=== PATIENT | male | born 1955 | race Caucasian/White ===

== ENCOUNTER 2021-08-10 14:39 | Inpatient (IN) ==
--- NOTE | 2021-08-10 15:15 | XRay Report ---
XR chest 1V portable CLINICAL HISTORY: Atypical chest pain TECHNIQUE: Single frontal radiograph of the chest was obtained. Comparison: None available at the time of this dictation. FINDINGS: No lines and tubes are seen. The cardiomediastinal silhouette is normal. The lungs are clear. No evid ence of pleural effusion or pneumothorax. IMPRESSION: No acute chest disease. ACT 112: Negative or not required by law. Electronically signed by: Wilberto Villanueva M.D. 08/10/2021 3:13 PM
[2021-08-10] MEDS ORDERED: NITROGLYCERIN SL 0.4 MG/TAB TAB SL STA ×2 (15:20→18:11)
[2021-08-10 15:21] LABS: Basophils # (auto) 0.02 K/uL (0-0.2); Basophils % (auto) 0.3 %; Eosinophils # (auto) 0.12 K/uL (0-0.5); Eosinophils % (auto) 1.9 %; Hematocrit (blood only) 40.3 % (42-52); Hemoglobin 13.4 g/dL (14.0-18.0); Immature Granulocytes # (auto) 0.01 K/uL (0.00-0.02); Immature Granulocytes % (auto) 0.2 %; Lymphocytes # (auto) 1.69 K/uL (1.2-3.4); Mean Corpuscular Hemoglobin 25.8 pg (25-34); Mean Corpuscular Hgb Conc 33.3 g/dL (32-36); Mean Corpuscular Volume 77.6 fL (80-100); Mean Platelet Volume 11.1 fL (7.4-10.4); Monocytes # (auto) 0.48 K/uL (0.11-0.59); Monocytes % (auto) 7.7 %; Neutrophils # (auto) 3.93 K/uL (1.4-6.5); Neutrophils % (auto) 62.9 %; Platelet Count 197 K/uL (130-400); RDW Coefficient of Variation 14.3 % (11.5-14.5); RDW Standard Deviation 40.6 fL (36.4-46.3); Red Blood Count 5.19 M/uL (4.7-6.1); White Blood Count 6.25 K/uL (4.8-10.8)
[2021-08-10] MEDS ORDERED: MoRPHine SULFATE 4 MG/ML 1 ML CARP\\VIAL IV STA (15:22)
[2021-08-10 15:30] LABS: Prothrombin Time 9.8 Seconds (9.0-12.0)
[2021-08-10 15:49] LABS: Alanine Aminotransferase 15 U/L (7-52); Albumin Globulin Ratio 1.5 (0.9-2); Albumin Level 4.3 gm/dl (3.4-5.0); Alkaline Phosphatase 77 U/L (34-104); Anion Gap 8 (3-11); Aspartate Aminotransferase 15 U/L (13-39); BUN Creatinine Ratio 15.6 (10-20); Bilirubin,Total 0.5 mg/dl (0.2-1.0); Blood Urea Nitrogen 14 mg/dl (6-23); Calcium 8.8 mg/dl (8.5-10.1); Carbon Dioxide 25 mmol/L (21-32); Chloride 107 mmol/L (98-107); Creatinine Clr Calc Pharmacy 92.6 ml/min; Est GFR (African American) 102.1 ml/min; Est GFR (Non-African American) 88.1 ml/min; Globulin 2.9 gm/dl (2.5-4.0); Glucose 134 mg/dl (70-99(Fasting)); Lipase 31 U/L (11-82); Potassium 3.6 mmol/L (3.5-5.1); Sodium 140 mmol/L (136-145); Total Protein 7.2 gm/dl (6.0-8.3); Troponin I < 0.03 ng/ml (0-0.04)
--- NOTE | 2021-08-10 15:50 | Emergency Department Note ---
Impression & Plan Chest pain, Coronary artery disease, Hypertension ED Provider Note Provider: Zeferino Ibarra MD DATE OF SERVICE: 08/10/2021 CHIEF COMPLAINT: Chest tightness HISTORY OF PRESENT ILLNESS: Patient is a 66-year-old gentleman history of hypertension, hypothyroidism, and CAD with prior stenting last in 2018 presenting here today via ambulance from his house with chest tightness. Patient reports that he had been well until yesterday. States that he was on his treadmill which he normally uses every day during the cold weather. Has a history of cold weather angina several years ago and thus during winter exercises inside. States he got on his treadmill it is normal to slightly less than normal rate and quickly had to stop after only 3 minutes due to tightness across his chest and some numbness in the left arm. He reports this was similar to paint when he had his heart related pain interventions in the past. States he felt generally weak and just could not lift dumbbells either yesterday to try to maintain his strength. Patient states things moderated when he stopped some but then today at rest the pain/tightness returned. Denies any tearing pain. Denies any abdominal symptoms such as nausea or vomiting. Patient denies syncope. Patient took 3 doses nitroglycerin arrival which minimally helped his pain. States he was going with his to get in the car to come to the [facility]ital when after the third dose of nitroglycerin he felt a bit lightheaded and had to get down to the floor but states he did not fall. Patient is on aspirin was given 3 additional tablets for full dose aspirin today by EMS and additional nitroglycerin. This did help his pain some. Still reports about a 7 out of 10 chest tightness. Patient states he has followed with Dr. Castro of cardiology here. REVIEW OF SYSTEMS: A total of 10 review of systems was obtained and negative except as stated above in the HPI. PAST MEDICAL HISTORY: As noted above MEDICATIONS: Reviewed home medications SOCIAL HISTORY: , retired PHYSICAL EXAM: GENERAL: alert and oriented in no acute distress on stretcher Head: normocephalic and atraumatic EYES: No injection, discharge or icterus. NECK: Trachea midline. LUNGS: Airway patent. No retractions. Breath sounds clear with good air entry bilaterally. HEART: Regular rate and rhythm. No chest wall tenderness ABDOMEN: Soft and non-tender, without guarding or rebound. SKIN: Acyanotic, warm, dry, without rashes EXTREMITIES: Without swelling, tenderness or deformity NEUROLOGICAL: No focal deficits. No aphasia. No facial droop or slurred speech. Ambulatory. EK bpm normal sinus rhythm. No PVC or PAC. No acute ST segment elevation with a QTC of 466. CONTINUOUS CARDIAC MONITORING: was ordered and showed a heart rate of 70s-90s bpm in normal sinus rhythm Patient's laboratory studies and imaging reviewed. Differential includes Cardiac ischemia, aortic dissection, pulmonary embolism, pneumothorax, pneumonia, pericarditis, myocarditis, esophageal rupture, GERD, cholecystitis, pancreatitis, musculoskeletal, as well as other pathologies. IMPRESSION/MEDICAL DECISION MAKING: Patient with significant history of CAD on aspirin with worrisome symptoms from exertional chest pain today to pain at rest today with a tightness similar to prior cardiac issues. No STEMI on initial EKG. Nitro 4 times prior to arrival given additional here. Patient still somewhat hypertensive but denies a tearing quality to the pain in his chest. Chest x-ray without significant abnormality noted such as wide mediastinum, pneumothorax, or pulmonary complaint. Covid test was completed to exclude although this is lower on my differential --negative. Basic blood work was sent. Patient with a benign abdomen on exam. Patient without significant leukocytosis and very minimal anemia. Given small amount morphine to help with his pain as well. No significant electrolyte abnormalities or signs of renal dysfunction on the blood work. Initial troponin here without significant elevation. Given pain and concerning story will have hospitalist eval for observation. Morphine significantly improved patient's pain. DIAGNOSIS: Chest pain DISPOSITION: Hospitalist will evaluate Patient was agreeable with this plan. Past Med/Surg History Medical History (Updated 05/17/21 @ 10:10 by Scarlet Espinal PA-C) Coronary artery disease Hypertension Hypothyroidism KATE (obstructive sleep apnea) TIA (transient ischemic attack) Surgical History (Updated 04/20/21 @ 09:43 by Cruz Ann LPN) History of appendectomy History of cataract surgery History of coronary artery stent placement History of left knee surgery History of thyroid surgery Family History Father Alcohol abuse Cancer of abdominal wall Myocardial infarction Sister Alcohol abuse Denies family history of Ovarian cancer Prostate cancer Breast cancer Colorectal cancer Social History (Updated 04/20/21 @ 09:48 by Cruz Ann LPN) Smoking Status: Never smoker Second Hand Exposure: No; Hx Alcohol Use: Yes Alcohol type: beer, wine and hard liquor Alcohol type Com ment: 5-8 drinks per week Hx Substance Use: No Preferred Language: Kyrgyz Communication Ability: Effective Visual Impairment: Limited Hearing Ability: Normal Beliefs That Will Affect Care: None marital status: Current Living Situation: Spouse current occupational status: retired How many Children do You have: 1 Feels Safe at Home: Yes Childhood Exposure to Second-Hand Smoke: Yes (father smoked cigars and pipe ) caffeine: Yes Dental Care, Regularly: Yes Physical Activity Frequency: 5-6 Times per Week Seatbelt Use: always Sunscreen Use: Yes Allergies Allergies Allergy/AdvReac Type Severity Reaction Status Date / Time bee venom protein (honey bee) Allergy Unknown Verified 08/10/21 16:01 Home Meds Home Medications Medication Instructions Recorded Confirmed aspirin 81 mg tablet,delayed 81 mg PO QAM tab 04/20/21 08/10/21 release (Adult Low Dose Aspirin) levothyroxine 150 mcg tablet 150 mcg PO DAILYBB 08/10/21 08/10/21 (Synthroid) metoprolol succinate 25 mg 12.5 mg PO QAM 08/10/21 08/10/21 tablet,extended release 24 hr Previous Rx's Medication Instructions Recorded amlodipine 10 mg tablet 10 mg PO QPM #90 tab 04/20/21 atorvastatin 40 mg tablet 40 mg PO QPM #90 tab 04/20/21 tamsulosin 0.4 mg capsule (Flomax) 0.4 mg PO HS #90 cap 04/20/21 nitroglycerin 0.4 mg sublingual 0.4 mg SUBLINGUAL Q5M PRN #30 tab 05/13/21 tablet CPAP Supplies #1 ea 05/18/21 Results & Data (ED) Vital Signs Vital Signs - 24 hr 08/10/21 14:50 08/10/21 15:16 08/10/21 15:42 Temperature 36.7 C Temperature Source Oral Pulse Rate 84 Pulse Rhythm Regular Pulse Strength Normal Respiratory Rate 18 Respiratory Effort / Characteristics Non-Labored Spontaneous Respiratory Depth Normal Respiratory Pattern Regular Blood Pressure 162/88 H 152/84 H 139/82 Blood Pressure Mean 112 106 101 Blood Pressure Position Lying Pulse Oximetry 99 Oxygen Delivery Method Room Air Sepsis Recent Fever Within 48 Hours No Sepsis New/Unexplained Change in Mental Status N/A Sepsis Action Taken by Nursing No Action Required 08/10/21 15:59 Temperature Temperature Source Pulse Rate Pulse Rhythm Pulse Strength Respiratory Rate Respiratory Effort / Characteristics Respiratory Depth Respiratory Pattern Blood Pressure 153/85 H Blood Pressure Mean 107 Blood Pressure Position Pulse Oximetry Oxygen Delivery Method Sepsis Recent Fever Within 48 Hours Sepsis New/Unexplained Change in Mental Status Sepsis Action Taken by Nursing Laboratory Data Result diagrams: 08/10/21 14:58 08/10/21 14:58 Lab Results 08/10/21 08/10/21 08/10/21 Range/Units 14:58 14:58 14:58 WBC 6.25 (4.8-10.8) K/uL RBC 5.19 (4.7-6.1) M/uL Hgb 13.4 L (14.0-18.0) g/dL Hct 40.3 L (42-52) % MCV 77.6 L (80-100) fL MCH 25.8 (25-34) pg MCHC 33.3 (32-36) g/dL RDW Std Deviation 40.6 (36.4-46.3) fL RDW Coeff of Johnson 14.3 (11.5-14.5) % Plt Count 197 (130-400) K/uL MPV 11.1 H (7.4-10.4) fL Immature Gran % (Auto) 0.2 % Neut % (Auto) 62.9 % Lymph % (Auto) 27.0 % Mcnairy % (Auto) 7.7 % Eos % (Auto) 1.9 % Baso % (Auto) 0.3 % Neut # (Auto) 3.93 (1.4-6.5) K/uL Lymph # (Auto) 1.69 (1.2-3.4) K/uL [place]nairy # (Auto) 0.48 (0.11-0.59) K/uL Eos # (Auto) 0.12 (0-0.5) K/uL Baso # (Auto) 0.02 (0-0.2) K/uL Immature Gran # (Auto) 0.01 (0.00-0.02) K/uL PT 9.8 (9.0-12.0) Seconds INR 1.0 (0.9-1.1) Sodium 140 (136-145) mmol/L Potassium 3.6 (3.5-5.1) mmol/L Chloride 107 (98-107) mmol/L Carbon Dioxide 25 (21-32) mmol/L Anion Gap 8 (3-11) BUN 14 (6-23) mg/dl Creatinine 0.90 (0.6-1.4) mg/dl Est Cr Clr Drug Dosing 92.6 ml/min Est GFR ( Amer) 102.1 ml/min Est GFR (Non-Af Amer) 88.1 ml/min BUN/Creatinine Ratio 15.6 (10-20) Glucose 134 H (70-99(Fasting)) mg/dl Calcium 8.8 (8.5-10.1) mg/dl Total Bilirubin 0.5 (0.2-1.0) mg/dl AST 15 (13-39) U/L ALT 15 (7-52) U/L Alkaline Phosphatase 77 (34-104) U/L Troponin I < 0.03 (0-0.04) ng/ml Total Protein 7.2 (6.0-8.3) gm/dl Albumin 4.3 (3.4-5.0) gm/dl Globulin 2.9 (2.5-4.0) gm/dl Albumin/Globulin Ratio 1.5 (0.9-2) Lipase 31 (11-82) U/L SARS-CoV-2, RNA, NAAT (NEGATIVE) 08/10/21 Range/Units 15:22 WBC (4.8-10.8) K/uL RBC (4.7-6.1) M/uL Hgb (14.0-18.0) g/dL Hct (42-52) % MCV (80-100) fL MCH (25-34) pg MCHC (32-36) g/dL RDW Std Deviation (36.4-46.3) fL RDW Coeff of Johnson (11.5-14.5) % Plt Count (130-400) K/uL MPV (7.4-10.4) fL Immature Gran % (Auto) % Neut % (Auto) % Lymph % (Auto) % Mcnairy % (Auto) % Eos % (Auto) % Baso % (Auto) % Neut # (Auto) (1.4-6.5) K/uL Lymph # (Auto) (1.2-3.4) K/uL Mcnairy # (Auto) (0.11-0.59) K/uL Eos # (Auto) (0-0.5) K/uL Baso # (Auto) (0-0.2) K/uL Immature Gran # (Auto) (0.00-0.02) K/uL PT (9.0-12.0) Seconds INR (0.9-1.1) Sodium (136-145) mmol/L Potassium (3.5-5.1) mmol/L Chloride (98-107) mmol/L Carbon Dioxide (21-32) mmol/L Anion Gap (3-11) BUN (6-23) mg/dl Creatinine (0.6-1.4) mg/dl Est Cr Clr Drug Dosing ml/min Est GFR ( Amer) ml/min Est GFR (Non-Af Amer) ml/min BUN/Creatinine Ratio (10-20) Glucose (70-99(Fasting)) mg/dl Calcium (8.5-10.1) mg/dl Total Bilirubin (0.2-1.0) mg/dl AST (13-39) U/L ALT (7-52) U/L Alkaline Phosphatase (34-104) U/L Troponin I (0-0.04) ng/ml Total Protein (6.0-8.3) gm/dl Albumin (3.4-5.0) gm/dl Globulin (2.5-4.0) gm/dl Albumin/Globulin Ratio (0.9-2) Lipase (11-82) U/L SARS-CoV-2, RNA, NAAT NEGATIVE (NEGATIVE) Administered Medications Discontinued Medications Morphine Sulfate (Morphine Sulfate 4 Mg/Ml 1 Ml Carp\Vial) 4 mg IV NOW STA Stop: 08/10/21 15:23 Last Admin: 08/10/21 15:59 Dose: 4 mg Documented by: [id number] Nitroglycerin (Nitroglycerin Sl 0.4 Mg/Tab Tab) 0.4 mg SL NOW STA Stop: 08/10/21 15:21 Last Admin: 08/10/21 15:37 Dose: 0.4 mg Documented by: [id number] Imaging Data Radiologist's Impression: Chest X-Ray 08/10/21 15:02 XR chest 1V portable CLINICAL HISTORY: Atypical chest pain TECHNIQUE: Single frontal radiograph of the chest was obtained. Comparison: None available at the time of this dictation. FINDINGS: No lines and tubes are seen. The cardiomediastinal silhouette is normal. The lungs are clear. No evidence of pleural effusion or pneumothorax. IMPRESSION: No acute chest disease. ACT 112: Negative or not required by law. Electronically signed by: Wilberto Villanueva M.D. 08/10/2021 3:13 PM Discharge Plan Visit Data Chief Complaint: Chest Pain Stated Complaint: CHEST PAIN ED Provider: Zeferino Ibarra Discharge Problem: Chest pain, Coronary artery disease, Hypertension Patient Disposition: Being Evaluated by Hospitalist Forms Stand Alone Forms: [facility] Prescriptions Prescriptions: No Action aspirin [Adult Low Dose Aspirin] 81 mg tablet,delayed release (DR/EC) 81 mg PO QAM RF: 0 amlodipine 10 mg tablet 10 mg PO QPM Qty: 90 RF: 3 atorvastatin 40 mg tablet 40 mg PO QPM Qty: 90 RF: 3 tamsulosin [Flomax] 0.4 mg capsule 0.4 mg PO HS Qty: 90 RF: 3 nitroglycerin 0.4 mg tablet, sublingual 0.4 mg sublingual Q5M PRN (Reason: chest pain) Qty: 30 RF: 3 (DME) CPAP Supplies Misc See Rx Instructions .Route Qty: 1 RF: 0 levothyroxine [Synthroid] 150 mcg tablet 150 mcg PO DAILYBB RF: 0 metoprolol succinate 25 mg tablet extended release 24 hr 12.5 mg PO QAM RF: 0 Referrals Referrals: Hussein Feng DO [Primary Care Provider] -
--- NOTE | 2021-08-10 17:08 | History & Physical Report ---
Date of Service August 10, 2021 Assessment & Plan (1) Chest pain: Plan: -s/p CSI atherectomy and placement of 2 ERICKA to RCA in 2018 -Nitro paste ointment and morphine PRN for pain control. -Trend troponin Q6 x2 and one with AM labs. -Start heparin drip in anticipation of patient going to cardiac [facility] tomorrow. -Cardiology consult for tomorrow AM. -ASA 325 daily. -Continue amlodipine, metoprolol, statin, ASA. (2) Coronary artery disease: Plan: See above. Continuing home meds, increasing ASA to 325 mg PO daily. (3) Hypertension: Plan: -Continue amlodipine and metoprolol QD. (4) Hypothyroidism: Plan: -Continue Synthroid 150 mcg QD. (5) Hyperlipidemia: Plan: -Continue atorvastatin 40 mg QD. (6) KATE (obstructive sleep apnea): Plan: -CPAP at night. (7) Ingrown toenail of right foot with infection: Plan: -Patient had a partial nail avulsion of the right great toe due to ingrown toenail on 08/[address] Francheska Chase with podiatry. Today the toe is erythematous with minor purulent discharge. -Augmentin p.o. twice daily for 7 days. (8) DVT prophylaxis: Plan: -SCDs ordered -On heparin drip. History of Present Illness Chief Complaint: chest pain x1 day Primary Care Provider: Hussein Feng DO Patient is 66-year-old male with past medical history of hypertension, hyperlipidemia, coronary artery disease with RCA stent placement in 2018, hypothyroidism and sleep apnea who presents today with chest pain for the past day. Patient states he was doing his routine treadmill exercise yesterday and could not exercise to the capacity he typically does because of generalized fatigue. He typically exercises for 45 min and can get up to speed 7 and maintain it for 4-5 min, however yesterday could only walk at a slower pace. He denies experiencing chest pain at this time. Today, he began to experience a squeezing chest pain in the center of his chest at rest that radiates to the back, associated with numbness and tingling down his left arm. He states this is a similar presentation as in 2018 when he had chest pain that led to drug eluting stent placement. He took 3 nitroglycerin at home, and notes becoming lightheaded with this but did not have adequate pain alleviation which prompted his to call EMS. He endorses generalized fatigue, nausea, and some mild, generalized abdominal pain over the past 2 days, but denies vomiting, shortness of breath, PND, palpitations, weakness, edema, cough, congestion, headache, or other URI symptoms. Denies a history of GERD or recent injury to the chest wall. Pain is not positional or reproducible with palpation. Blood pressure is slightly elevated at 153/85, otherwise vitals are within normal limits. Initial troponin in ED was less than 0.03. EKG showed a sinus rhythm, when compared to an outpatient EKG from Apr 2021, there is evidence of LVH and questionable ST depression in the lateral leads. He was given aspirin on his way to the ED, as well as sublingual nitroglycerin and morphine in the ED. He says the morphine has brought his pain down to a 2-3 out of 10, however before it was 4-5 out of 10. Hospitalist team was called for evaluation and medical management. Allergies Allergy/AdvReac Type Severity Reaction Status Date / Time bee venom protein (honey bee) Allergy Unknown Verified 08/10/21 16:01 Home Medications Medication Instructions Recorded Confirmed Type amlodipine 10 mg tablet 10 mg PO QPM #90 tab 04/20/21 08/10/21 Rx aspirin 81 mg tablet,delayed 81 mg PO QAM tab 04/20/21 08/10/21 History release (Adult Low Dose Aspirin) atorvastatin 40 mg tablet 40 mg PO QPM #90 tab 04/20/21 08/10/21 Rx tamsulosin 0.4 mg capsule (Flomax) 0.4 mg PO HS #90 cap 04/20/21 08/10/21 Rx nitroglycerin 0.4 mg sublingual 0.4 mg SUBLINGUAL Q5M PRN #30 tab 05/13/21 08/10/21 Rx tablet CPAP Supplies #1 ea 05/18/21 08/10/21 Rx levothyroxine 150 mcg tablet 150 mcg PO DAILYBB 08/10/21 08/10/21 History (Synthroid) metoprolol succinate 25 mg 12.5 mg PO QAM 08/10/21 08/10/21 History tablet,extended release 24 hr Past Med/Surg History Medical History Coronary artery disease Hypertension Hypothyroidism KATE (obstructive sleep apnea) TIA (transient ischemic attack) Surgical History History of appendectomy History of cataract surgery History of coronary artery stent placement History of left knee surgery History of thyroid surgery Family History Father Alcohol abuse Cancer of abdominal wall Myocardial infarction Sister Alcohol abuse Denies family history of Ovarian cancer Prostate cancer Breast cancer Colorectal cancer Social History Smoking Status: Never smoker Second Hand Exposure: No; Hx Alcohol Use: Yes Alcohol type: beer, wine and hard liquor Alcohol type Comment: 5-8 drinks per week Hx Substance Use: No Preferred Language: Polish Communication Ability: Effective Visual Impairment: Limited Hearing Ability: Normal State [employer] Deputy Director Required: No Beliefs That Will Affect Care: None marital status: Current Living Situation: Spouse Current Living Situation Comment: with current occupational status: retired How many Children do You have: 1 Other Information That Helps Us Care for You: No Feels Safe at Home: No Is there a partner from a previous relationship who is making you feel unsafe now?: No Any Concerns about Your Family Situation: No Would You Like to Speak to Someone About Your Situation: No Safety Concerns: Feels Safe At This Time Childhood Exposure to Second-Hand Smoke: Yes (father smoked cigars and pipe ) caffeine: Yes Dental Care, Regularly: Yes Physical Activity Frequency: 5-6 Times per Week Seatbelt Use: always Sunscreen Use: Yes Assistive Devices: CPAP Review of Systems Review of Systems: Review of systems: Constitutional: Reports generalized fatigue x2 days; No fever, sweats or chills Eyes: No diplopia, no worsening or blurred vision ENT: normal hearing, no trouble swallowing Respiratory: No cough, sputum, dyspnea at rest or on exertion Cardiovascular: Reports substernal chest tightness with radiation to the back; denies palpitations Abdomen: Reports mild generalized abdominal pain and one episode of nausea; No vomiting, diarrhea or constipation Musculoskeletal: No joint pain, calf pain, swelling Neurologic: No weakness, numbness/tingling, or balance problems Psychiatric: No anxiety or depression Skin: No rash or itch Physical Exam Physical Exam: General: awake, alert, no apparent distress Head: Normocephalic, atraumatic ENT: PERRL, EOMI, no pharyngeal exudate, mucous membranes moist Chest: Clear to auscultation, on room air, no adventitious breath sounds Cardiac: Regular rate and rhythm, no murmur, no JVD, normal peripheral pulses, good capillary refill Abdominal: NABS x 4 quadrants, soft, nontender to palpation, no rebound, guarding or tenderness Extremities: Normal inspection, no peripheral edema or erythema, calfs nontender to palpation Psych: Normal mood and affect Neuro: AAO x 3, strength intact bilaterally and rated 5/5, no motor deficits, speech is clear, no peripheral sensory deficits Skin: Erythema with mild purulent discharge of right great toe Results & Data Results & Data ([facility]) Vital Signs (Past 12 Hours) Vital Signs Temp Pulse Resp BP Pulse Ox 08/10/21 15:59 153/85 H 08/10/21 15:42 139/82 08/10/21 15:16 152/84 H 08/10/21 14:50 36.7 C 84 18 162/88 H 99 Laboratory Results Abnormal lab results 08/10/21 08/10/21 Range/Units 14:58 14:58 Hgb 13.4 L (14.0-18.0) g/dL Hct 40.3 L (42-52) % MCV 77.6 L (80-100) fL MPV 11.1 H (7.4-10.4) fL Glucose 134 H (70-99(Fasting)) mg/dl Diagnostic Findings Chest X-Ray 08/10/21 15:02 XR chest 1V portable CLINICAL HISTORY: Atypical chest pain TECHNIQUE: Single frontal radiograph of the chest was obtained. Comparison: None available at the time of this dictation. FINDINGS: No lines and tubes are seen. The cardiomediastinal silhouette is normal. The lungs are clear. No evidence of pleural effusion or pneumothorax. IMPRESSION: No acute chest disease. Medications Administered Morphine Sulfate (Morphine Sulfate 2 Mg/Ml Carp) 2 mg IV Q4 PRN PRN Reason: Pain Scale: 2,3,4,5,6 Stop: 08/24/21 18:10 Last Admin: 08/10/21 18:32 Dose: 2 mg Documented by: [id number] Nitroglycerin (Nitroglycerin 2% Ointment 30gm Tube) 1 inch EXT Q6H CHRISTIAN Stop: 09/09/21 18:14 Last Admin: 08/10/21 18:31 Dose: 1 inch Documented by: [id number] ECG Additional Comments: Normal sinus rhythm Normal ECG No previous ECGs available Confirmed by Mushtaq Shoemaker ([id number]) on 08/10/2021 5:59:10 PM Code Status & VTE Plan Code Status Full Code Supervising Physician Co-Signing Physician Notes Patient was seen and examined independently I discussed the case with Tangela GRIFFIN I reviewed pertinent past medical social family history and also the plan of care and agree with the plan of care. Patient presents with reproducible exertional chest discomfort reminiscent of his previous angina. Patient had 2 drug-eluting stents to his right coronary artery in 2018. She has some associated shortness of breath but no radiation of discomfort no nausea. Initial EKG may have had some mild lateral changes however his initial troponin and repeat EKG are unremarkable. For stent 2018 he was on aspirin and Brilinta subsequently is reduced down to aspirin itself plus atorvastatin plus Toprol-XL these are all continued Because of a stuttering course in the emergency department therapeutic heparin drip was started nitroglycerin paste was placed morphine will be used sparingly Examination finds heart sounds regular no overt murmurs lungs were clear no overt JVD extremities are without edema he does have possibly some mild paronychia to his right great toe he is recently has an ingrown toenail removed placed on oral antibiotics for this at this time Any exceptions will be noted below PG Care Time/CCT Total # of Minutes Spent Total Time Spent with Patient: Total time spent is greater than 50% in coordination of care (as documented) at patient's floor/unit and/or counseling patient: Coding Level of Care Code 72687 Initial Inpt Care Lvl 3 Diagnoses Coronary artery disease I25.110 Associated angina: with unstable angina Coronary Disease-Associated Artery/Lesion type: ho-chunk artery [place] vs. transplanted heart: ho-chunk heart Hypertension I10 Hypertension type: primary hypertension Hypothyroidism E89.0 Hypothyroidism type: postoperative Hyperlipidemia E78.5 Hyperlipidemia type: unspecified KATE (obstructive sleep apnea) G47.33 DVT prophylaxis Z29.9 Chest pain R07.9 Ischemic chest pain type: unstable angina pectoris Ingrown toenail of right foot with infection L60.0 (1) Coronary artery disease Associated angina: with unstable angina Coronary Disease-Associated Artery/Lesion type: [place] artery [place] vs. transplanted heart: [place] heart Qualified Code(s): I25.110 - Atherosclerotic heart disease of ho-chunk coronary artery with unstable angina pectoris (2) Hyperlipidemia Hyperlipidemia type: unspecified Qualified Code(s): E78.5 - Hyperlipidemia, unspecified (3) Hypothyroidism Hypothyroidism type: postoperative Qualified Code(s): E89.0 - Postprocedural hypothyroidism (4) Chest pain Ischemic chest pain type: unstable angina pectoris (5) Hypertension Hypertension type: primary hypertension Qualified Code(s): I10 - Essential (primary) hypertension
--- NOTE | 2021-08-10 17:59 | Electrocardiogram Report ---
Test Reason : Blood Pressure : / mmHG Vent. Rate : 075 BPM Atrial Rate : 075 BPM P-R Int : 168 ms QRS Dur : 090 ms QT Int : 418 ms P-R-T Axes : 061 -21 031 degrees QTc Int : 466 ms Normal sinus rhythm Normal ECG No previous ECGs available Confirmed by Mushtaq Shoemaker ([id number]) on 08/10/2021 5:59:10 PM Referred By: ED Confirmed By:Lito Shoemaker
[2021-08-10] MEDS ORDERED: Heparin IV Adult Wt-Based Low-Dose WITH Bolus Protocol IV STA (18:01)
[2021-08-10] MEDS ORDERED: NITROGLYCERIN 2% OINTMENT 30GM TUBE EXT SCH (18:15)
[2021-08-10] MEDS: NITROGLYCERIN 2% OINTMENT 30GM TUBE EXT SCH (18:31)
[2021-08-10] MEDS: MoRPHine SULFATE 2 MG/ML CARP IV PRN ×2 (18:32→22:36)
[2021-08-10] MEDS ORDERED: HEPARIN SODIUM/DEXTROSE 25,000 UNITS/500 ML BAG IV SCH (20:00)
[2021-08-10] MEDS ORDERED: HEPARIN SOD (PORCINE) 1000 UNIT/ML IV ONE (20:00)
[2021-08-10] MEDS ORDERED: POLYETHYLENE (MIRALAX) 17 GM PACK PO PRN (21:07)
[2021-08-10] MEDS ORDERED: ONDANSETRON INJ 2 MG/ML 2 ML VIAL IV PRN (21:07)
[2021-08-10] MEDS: AMOXICILLIN/CLAVULANATE 500 MG TAB PO SCH (21:09)
[2021-08-10 23:49] LABS: Partial Thromboplastin Time 25.2 Seconds (21.0-31.0)
[2021-08-11] MEDS: amLODIPine BESYLATE 5 MG TAB PO SCH ×2 (00:12→20:36)
[2021-08-11] MEDS: TAMSULOSIN HCL 0.4 MG CAP PO SCH ×2 (00:14→20:36)
[2021-08-11] MEDS: ATORVASTATIN 40 MG TAB PO SCH ×2 (00:14→20:36)
[2021-08-11] MEDS: NITROGLYCERIN 2% OINTMENT 30GM TUBE EXT SCH ×3 (01:40→12:20)
[2021-08-11] MEDS: MoRPHine SULFATE 2 MG/ML CARP IV PRN ×3 (02:59→11:15)
[2021-08-11 03:15] LABS: Partial Thromboplastin Ratio 1.7; Partial Thromboplastin Time 43.9 Seconds (21.0-31.0)
[2021-08-11] MEDS: LEVOTHYROXINE SODIUM 150 MCG TABLET PO SCH (05:39)
[2021-08-11] MEDS: METOPROLOL SUCC 25MG EXT REL TAB PO SCH (07:47)
[2021-08-11] MEDS: AMOXICILLIN/CLAVULANATE 500 MG TAB PO SCH ×2 (07:47→20:36)
[2021-08-11] MEDS ORDERED: LORazepam 0.5 MG/1 ML VIAL IV PRN (07:57)
[2021-08-11] MEDS ORDERED: ASPIRIN 325 MG ECTAB PO SCH ×2 (09:00)
--- NOTE | 2021-08-11 09:54 | Cardiology Consultation ---
Date of Consultation August 11, 2021 Assessment & Plan (1) Coronary artery disease: Patient here with recurrent chest pain reminiscent of prior symptoms he had in the setting of severe CAD. Suspicion for ACS remains elevated despite negative troponin. With persistent symptoms recommend proceeding with cardiac catheterization. We discussed procedure including risk, benefits and he would like to proceed. Plan to perform via right radial artery later this morning. In the interim please keep n.p.o.. Repeat echocardiogram. Continue heparin infusion, home beta-david, aspirin. Further recommendations pending findings of coronary angiography. History of Present Illness Attending Physician: Pedro Luis Finney MD History of Present Illness Mr. Corbin is a very pleasant 66-year-old male with a past medical history significant for coronary artery disease post complex PCI to RCA with atherectomy and 2 ERICKA in 2018 readmitted with recurrent chest pain. Other medical issues include TIA in 2014, hypertension, hyperlipidemia, BPH, and hypothyroidism. Patient active at baseline, exercising regularly, walking on a treadmill, resistance training. 2 days ago attempted to do his regular walking on the treadmill and was stopped by increased fatigue, feeling unwell and questionable chest tightness. Yesterday after lunch developed recurrent substernal chest pain with radiation to his left arm and some associated nausea. Pain reminiscent of what he had prior to prior stents. Chest pain eventually spread to his left chest. Persisted despite 3 sublingual nitroglycerin at home, 8 out of 10 at its worst Presented to ED with ongoing chest pain. Troponin negative x3. Has had stuttering chest pain overnight requiring intermittent morphine, Ativan. Serial ECGs largely unremarkable. Subtle inferior ST changes on 3 AM ECG. Prior cardiac history: Seen by [facility] cardiology as a new consult 04/2021. Previously followed with a estimator jewelry, Dr. Nikko Calderon, at [facility]. According to records, he presented on 09/11/17 with chest pain. ECG showed normal sinus rhythm with nonspecific ST-T wave changes. Troponin was negative x3. He underwent a stress echo and developed chest discomfort during the study. The echo was unremarkable, but he did have ST depression on ECG. Cardiac catheterization on 09/12/17 revealed 50% proximal and 99% midvessel RCA stenosis. LAD had 30-50% midvessel stenosis. Circumflex was patent. The subtotal RCA stenosis was unable to be crossed at that time. He was taken back to the lab on 09/14/17 and had successful intervention to the RCA with the use of CSI atherectomy and placement of 3.0 x 33 mm Xience ERICKA to the prox and mid segments and 3.0 x 23 mm Xience ERICKA to the the more distal aspect of the mid segment of the RCA. He developed chest pain in May 2018 and underwent repeat cath on 06/01/18, which demonstrated widely patent RCA stents and patent LAD and circumflex. Family history: Father had a NC in his mid 30s. Social history: He is . He has 1 son and 1 grandson. He has another grandchild on the way. He recently moved to the area from [place], [place]. 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 No smoking. Occasional alcohol use. Allergies Allergy/AdvReac Type Severity Reaction Status Date / Time bee venom protein (honey bee) Allergy Unknown Verified 08/10/21 16:01 Home Medications Medication Instructions Recorded Confirmed Type amlodipine 10 mg tablet 10 mg PO QPM #90 tab 04/20/21 08/10/21 Rx aspirin 81 mg tablet,delayed 81 mg PO QAM tab 04/20/21 08/10/21 History release (Adult Low Dose Aspirin) atorvastatin 40 mg tablet 40 mg PO QPM #90 tab 04/20/21 08/10/21 Rx tamsulosin 0.4 mg capsule (Flomax) 0.4 mg PO HS #90 cap 04/20/21 08/10/21 Rx nitroglycerin 0.4 mg sublingual 0.4 mg SUBLINGUAL Q5M PRN #30 tab 05/13/21 08/10/21 Rx tablet CPAP Supplies #1 ea 05/18/21 08/10/21 Rx levothyroxine 150 mcg tablet 150 mcg PO DAILYBB 08/10/21 08/10/21 History (Synthroid) metoprolol succinate 25 mg 12.5 mg PO QAM 08/10/21 08/10/21 History tablet,extended release 24 hr Patient History Medical History Coronary artery disease Hypertension Hypothyroidism KATE (obstructive sleep apnea) TIA (transient ischemic attack) Surgical History History of appendectomy History of cataract surgery History of coronary artery stent placement History of left knee surgery History of thyroid surgery Family History Father Alcohol abuse Cancer of abdominal wall Myocardial infarction Sister Alcohol abuse Denies family history of Ovarian cancer Prostate cancer Breast cancer Colorectal cancer Social History Smoking Status: Never smoker Second Hand Exposure: No; Hx Alcohol Use: Yes Alcohol type: beer, wine and hard liquor Alcohol type Comment: 5-8 drinks per week Hx Substance Use: No Preferred Language: Amharic Communication Ability: Effective Visual Impairment: Limited Hearing Ability: Normal Scaffold Setter Required: No Beliefs That Will Affect Care: None marital status: Current Living Situation: Spouse Current Living Situation Comment: with current occupational status: retired How many Children do You have: 1 Other Information That Helps Us Care for You: No Feels Safe at Home: No Is there a partner from a previous relationship who is making you feel unsafe now?: No Any Concerns about Your Family Situation: No Would You Like to Speak to Someone About Your Situation: No Safety Concerns: Feels Safe At This Time Childhood Exposure to Second-Hand Smoke: Yes (father smoked cigars and pipe ) caffeine: Yes Dental Care, Regularly: Yes Physical Activity Frequency: 5-6 Times per Week Seatbelt Use: always Sunscreen Use: Yes Assistive Devices: CPAP Review of Systems Review of Systems: All systems reviewed & are unremarkable except as noted in HPI & below Physical Exam Physical Exam: General: Comfortable HEENT: Sclerae anicteric, Mask in place Lungs: Clear to auscultation bilaterally, no crackles or wheezes Cardiac: Regular rate and rhythm, no murmurs. Vascular: 2+ radial, DP pulses. No bruits Abdomen: Soft, nontender Extremities: Well perfused, no peripheral edema Neuro: Nonfocal Psych: Alert orient x3, normal affect and mood Results & Data ([facility]) Vital Signs (Past 12 Hours) Vital Signs Temp Pulse Pulse Resp BP BP Pulse Ox 08/11/21 08:50 54 L 08/11/21 07:57 97.7 F 85 18 150/86 H 98 08/11/21 05:38 113/63 08/11/21 02:53 97.7 F 77 18 150/80 H 99 08/11/21 01:38 132/79 08/11/21 00:05 97.7 F 58 L 18 146/78 H 96 08/10/21 23:44 65 08/10/21 22:26 65 16 152/89 H 98 PG Care Time/CCT Total # of Minutes Spent Total Time Spent with Patient: Total time spent is greater than 50% in coordination of care (as documented) at patient's floor/unit and/or counseling patient: Coding Level of Care Code 74044 Initial Inpt Care Lvl 3 Diagnoses Coronary artery disease I25.110 Associated angina: with unstable angina Coronary Disease-Associated Artery/Lesion type: [place] artery [place] vs. transplanted heart: [place] heart (1) Coronary artery disease Associated angina: with unstable angina Coronary Disease-Associated Artery/Lesion type: [place] artery [place] vs. transplanted heart: [place] heart Qualified Code(s): I25.110 - Atherosclerotic heart disease of [place] coronary artery with unstable angina pectoris
[2021-08-11 10:16] LABS: Partial Thromboplastin Ratio 1.7; Partial Thromboplastin Time 43.6 Seconds (21.0-31.0)
[2021-08-11] MEDS ORDERED: niCARdipine HCL INJ 2.5 MG/ML 10 ML AMP ONE (12:56)
[2021-08-11] MEDS ORDERED: HEPARIN (PORCINE) 1000 UNIT/ML 10 ML (CATH LAB USE ONLY) ONE (12:56)
[2021-08-11] MEDS ORDERED: MIDAZOLAM HCL 1 MG/ML 2ML VIAL ONE (12:57)
[2021-08-11] MEDS ORDERED: fentaNYL citrate 100 MCG/2 ML VIAL ONE (12:57)
[2021-08-11] MEDS ORDERED: NITROGLYCERIN/D5W 100MCG/ML 20ML SYR ONE (12:57)
--- NOTE | 2021-08-11 13:12 | Pre Anesthesia Assessment ---
Date of Service August 11, 2021 Pre Sedation Assessment Vital Signs Temp Pulse Pulse Resp BP BP BP 08/11/21 12:55 73 08/11/21 12:17 65 18 103/55 L 08/11/21 11:18 97.3 F L 71 18 144/76 H 08/11/21 08:50 54 L 08/11/21 07:57 97.7 F 85 18 150/86 H 08/11/21 05:38 113/63 08/11/21 02:53 97.7 F 77 18 150/80 H 08/11/21 01:38 132/79 08/11/21 00:05 97.7 F 58 L 18 146/78 H 08/10/21 23:44 65 08/10/21 22:26 65 16 152/89 H 08/10/21 21:05 65 16 141/81 H 08/10/21 20:51 80 16 141/81 H 08/10/21 18:57 70 16 142/87 H 08/10/21 17:58 70 16 148/94 H 08/10/21 15:59 153/85 H 08/10/21 15:42 139/82 08/10/21 15:16 152/84 H 08/10/21 14:50 98.1 F 84 18 162/88 H Pulse Ox 08/11/21 12:55 98 08/11/21 12:17 96 08/11/21 11:18 97 08/11/21 08:50 08/11/21 07:57 98 08/11/21 05:38 08/11/21 02:53 99 08/11/21 01:38 08/11/21 00:05 96 08/10/21 23:44 08/10/21 22:26 98 08/10/21 21:05 98 08/10/21 20:51 98 08/10/21 18:57 98 08/10/21 17:58 99 08/10/21 15:59 08/10/21 15:42 08/10/21 15:16 08/10/21 14:50 99 Cardiovascular RRR, no murmur, no edema Respiratory normal respiratory effort, lungs clear to auscultation Pre-Sedation Airway Assessment Smoking Status: Never smoker Hx Sleep Apnea: Yes Hx Difficult Intubation: No Short, Thick Neck: Yes Thyromental Distance: > or= 3.5 Finger Breadths Oral Cavity: + WNL Mallampati Class: III ASA: ASA3 NPO Status Date of Last Intake of Fluids: 08/10/21 Date of Last Intake of Solid Food: 08/10/21 Procedure Planning Contraindications for Sedation: none Current Medications Reviewed: Yes Notes The planned sedation has been discussed with the patient. Informed Consent was obtained. I have identified the patient, determined the appropriateness of sedation and have assessed the patient immediately prior to the procedure. All medicine(s) and interventions are by my order.
--- NOTE | 2021-08-11 13:33 | XCELERA ---
[id number]
--- NOTE | 2021-08-11 14:05 | Post Anesthesia Assessment ---
Date of Service August 11, 2021 Post Sedation Assessment Vital Signs Temp Pulse Pulse Resp BP BP BP 08/11/21 12:55 73 08/11/21 12:17 65 18 103/55 L 08/11/21 11:18 97.3 F L 71 18 144/76 H 08/11/21 08:50 54 L 08/11/21 07:57 97.7 F 85 18 150/86 H 08/11/21 05:38 113/63 08/11/21 02:53 97.7 F 77 18 150/80 H 08/11/21 01:38 132/79 08/11/21 00:05 97.7 F 58 L 18 146/78 H 08/10/21 23:44 65 08/10/21 22:26 65 16 152/89 H 08/10/21 21:05 65 16 141/81 H 08/10/21 20:51 80 16 141/81 H 08/10/21 18:57 70 16 142/87 H 08/10/21 17:58 70 16 148/94 H 08/10/21 15:59 153/85 H 08/10/21 15:42 139/82 08/10/21 15:16 152/84 H 08/10/21 14:50 98.1 F 84 18 162/88 H Pulse Ox 08/11/21 12:55 98 08/11/21 12:17 96 08/11/21 11:18 97 08/11/21 08:50 08/11/21 07:57 98 08/11/21 05:38 08/11/21 02:53 99 08/11/21 01:38 08/11/21 00:05 96 08/10/21 23:44 08/10/21 22:26 98 08/10/21 21:05 98 08/10/21 20:51 98 08/10/21 18:57 98 08/10/21 17:58 99 08/10/21 15:59 08/10/21 15:42 08/10/21 15:16 08/10/21 14:50 99 Recovery Score Activity: Moves 4 extremities Respiration: Deep Breath/Cough Circulation: +/-20% PreAnes Value Consciousness: Fully Awake Oxygen Saturation: O2 needed for >90% Discharge Sedation Level of Care: Fast Track Phase II Post Sedation Plan On clinical assessment, the patient appears to have tolerated the sedation without complications. Patient is recovering as anticipated. Patient will continue to be monitored by nursing and may be discharged when sedation discharge criteria are met per below protocol. Upon Completions of procedure up to 15 minutes continue every 5 minute vital signs and the P.A.R. score; then discharge to a Phase I or Fast Track to Phase II per the following guidelines: * Discharge Patient to appropriate Phase II area if PAR is 8 or greater or return to pre- procedure baseline. The post - procedure orders will be as directed. * If PAR score is less than 8 or not return to pre-procedure baseline then patient will follow Phase I monitoring till PAR is reached for Phase II. The Phase I may be done in procedure room or may call to secure a Phase I area. * If naloxone or flumazenil are used for reversal, hold in Phase I for continued monitoring from when last reversal dose was given for a minimum of 60 minutes or longer pending the nurse and/or physician discretion of patient condition before discharge to Phase II. Please call the Sedation Physician to re-evaluate and complete post-note for discharge to Phase II area. Do NOT discharge from procedure sedation or Phase 1 until post- sedation evaluation note is complete by procedure /sedation MD Sedation Discharge Instructions to be given to the patient at discharge to home.
[2021-08-11] MEDS ORDERED: SODIUM CHLORIDE 0.9% 1000ML 1,000 ML IV SCH (14:15)
--- NOTE | 2021-08-11 14:35 | Cardiac Catheterization ---
[facility] Data: Show Worker Cardiac Status Clinical evaluation leading to the procedure CAD Presenation: Unstable angina Anginal Classification: CCS IV Heart Failure: No Cardiogenic Shock within 24 Hours: No Cardiac Arrest within 24 Hours: No Imaging Studies Past 6 Months: Yes Stress Studies Past 6 Months: No Diagnostic Physicians Name: Mushtaq Roque MD Status: Elective Closure Device Percutaneous Entry Location: Radial Closure Device: Radial Band Recommendations: Medical Therapy and/or Counseling Intraprocedure Events Significant Disection: No Perforation: No Cardiac Cath Procedure Full Procedure Date August 11, 2021 Pre-Procedure Diagnosis Pre-Procedure Diagnosis: Acute Coronary Syndrome AUC Score AUC Score: 7 Post-Procedure Diagnosis Post-Procedure Diagnosis: Moderate CAD and Normal Intracardiac Pressures Procedure(s) Performed Procedure(s) Performed: Coronary Angiography and Left Heart Cath Crew Caller Mushtaq Roque MD Family Law Attorney(s) Olivieribler Estimated Blood Loss Estimated Blood Loss: 15 Medication(s) Medication(s): Fentanyl, Heparin, Lidocaine 1%, Nicardipine, Nitroglycerin and Versed Summary of Findings Indication: Suspected ACS. History of coronary artery disease with prior PCI to RCA with atherectomy and 2 ERICKA Access: 6 Fr right radial artery attemptedunable to pass wire across brachial artery disease. Procedure completed through 6 Fr left radial artery access Catheters: [place], JL 4 Findings: LM -medium caliber, no significant disease LAD -medium caliber, 20 to 30% mid segment disease, 60-70% stenosis with some myocardial bridging in very distal LAD as wraps around apex. Circumflex -medium caliber, no significant disease. Gives off large OM 2 without disease. RCA -dominant, medium caliber, widely patent proximal to mid stent, latemid stent with 30 to 40% in-stent restenosis. PDA with 40 to 50% mid stenosis LVEDP - 4 Arterial Closure: TR band Summary: 1. Moderate nonobstructive coronary artery disease -Patent proximal to mid RCA stent, late-mid RCA stent with 30 to 40% restenosis. 45% mid PDA. 60 to 70% stenosis with myocardial bridging of very distal LAD as wraps around apex 2. Low intracardiac filling pressure Recommendations: Patient with no high risk CAD. Borderline very distal LAD disease not the cause of patient's recent rest pain. Continue medical managementwe will try Imdur 30 mg daily for recent exertional symptoms. Continue antiplatelet therapy with aspirin alone. Continue statin and prior antihypertensives. Further evaluation for noncardiac causes of recent chest pain per primary team. Hemodynamics Rest Ao:: 85/56/70 Final Ao: 90/57/73 LV: 97/4 Recommendations Recommendations: Medical Therapy and/or Counseling Specimens Specimens: None Radiation Exposure (mGy) 653 Contrast (mls) 50 Fluids (cc crystalloids) Fluids (cc crystalloids): 85 Drains Drains: None Anesthesia Moderate 6236-1504 Procedural Complication(s) None Disposition Show Worker Holding/Recovery I attest to the content of the Intraoperative Record and any orders documented therein. Any exceptions are noted below. [facility] Card Cath Procedure Codes Cardiac Catheterization Procedure 1: Cardiovascular Cath Procedures: 81337 Coronaries and LHC (+/-LV) Moderate Sedation Procedure 1: Sedation/Anesthesia: 04533 Mod Sedation by the same physician;Init15 Min Child Age 5 & Up PG Care Time/CCT Total # of Minutes Spent Total Time Spent with Patient: Total time spent is greater than 50% in coordination of care (as documented) at patient's floor/unit and/or counseling patient:
--- NOTE | 2021-08-11 14:54 | Electrocardiogram Report ---
Test Reason : Blood Pressure : / mmHG Vent. Rate : 066 BPM Atrial Rate : 066 BPM P-R Int : 172 ms QRS Dur : 090 ms QT Int : 454 ms P-R-T Axes : 046 -19 015 degrees QTc Int : 475 ms Poor data quality, interpretation may be adversely affected Normal sinus rhythm Minimal voltage criteria for LVH, may be normal variant Borderline ECG When compared with ECG of 10-AUG-2021 14:47, No significant change was found Confirmed by Mushtaq Shoemaker ([id number]) on 08/11/2021 2:54:11 PM Referred By: REFERRED SELF Confirmed By:Lito Shoemaker
--- NOTE | 2021-08-11 15:38 | Electrocardiogram Report ---
Test Reason : Blood Pressure : / mmHG Vent. Rate : 058 BPM Atrial Rate : 058 BPM P-R Int : 176 ms QRS Dur : 090 ms QT Int : 468 ms P-R-T Axes : 049 -08 014 degrees QTc Int : 459 ms Sinus bradycardia Otherwise normal ECG When compared with ECG of 10-AUG-2021 19:46, (unconfirmed) No significant change was found Confirmed by Mushtaq Shoemaker ([id number]) on 08/11/2021 3:38:18 PM Referred By: REFERRED SELF Confirmed By:Lito Shoemaker
--- NOTE | 2021-08-11 15:42 | Electrocardiogram Report ---
Test Reason : Blood Pressure : / mmHG Vent. Rate : 075 BPM Atrial Rate : 075 BPM P-R Int : 174 ms QRS Dur : 088 ms QT Int : 400 ms P-R-T Axes : 064 -11 007 degrees QTc Int : 447 ms Normal sinus rhythm When compared with ECG of 10-AUG-2021 21:14, (unconfirmed) No significant change was found Confirmed by Mushtaq Shoemaker ([id number]) on 08/11/2021 3:42:28 PM Referred By: REFERRED SELF Confirmed By:Lito Shoemaker
--- NOTE | 2021-08-11 15:43 | Electrocardiogram Report ---
Test Reason : Blood Pressure : / mmHG Vent. Rate : 074 BPM Atrial Rate : 074 BPM P-R Int : 166 ms QRS Dur : 090 ms QT Int : 426 ms P-R-T Axes : 072 -11 053 degrees QTc Int : 472 ms Normal sinus rhythm Normal ECG When compared with ECG of 11-AUG-2021 06:11, (unconfirmed) Nonspecific T wave abnormality no longer evident in Inferior leads Nonspecific T wave abnormality, improved in Lateral leads Confirmed by Mushtaq Shoemaker ([id number]) on 08/11/2021 3:43:12 PM Referred By: REFERRED SELF Confirmed By:Lito Shoemaker
--- NOTE | 2021-08-11 15:43 | Electrocardiogram Report ---
Test Reason : Blood Pressure : / mmHG Vent. Rate : 061 BPM Atrial Rate : 061 BPM P-R Int : 178 ms QRS Dur : 090 ms QT Int : 444 ms P-R-T Axes : 072 -15 -09 degrees QTc Int : 446 ms Normal sinus rhythm Normal ECG When compared with ECG of 11-AUG-2021 03:02, (unconfirmed) No significant change was found Confirmed by Mushtaq Shoemaker ([id number]) on 08/11/2021 3:43:20 PM Referred By: REFERRED SELF Confirmed By:Lito Shoemaker
--- NOTE | 2021-08-11 19:06 | Hospitalist Progress Note ---
Date of Service August 11, 2021 Assessment & Plan (1) Chest pain: Plan: -s/p CSI atherectomy and placement of 2 ERICKA to RCA in 2018 -negative trend of troponin -left heart cath Moderate nonobstructive coronary artery disease -Patent proximal to mid RCA stent, late-mid RCA stent with 30 to 40% restenosis. 45% mid PDA. 60 to 70% stenosis with myocardial bridging of very distal LAD as wraps around apex Low intracardiac filling pressure Recommendations by cardiology : Patient with no high risk CAD. Borderline very distal LAD disease not the cause of patient's recent rest pain. Continue medical managementwe will try Imdur 30 mg daily for recent exertional symptoms. Continue antiplatelet therapy with aspirin alone. Continue statin and prior antihypertensives. -Continue amlodipine, metoprolol, statin, ASA. (2) Hypertension: Plan: -Continue amlodipine and metoprolol QD. (3) Hypothyroidism: Plan: -Continue Synthroid 150 mcg QD. (4) Hyperlipidemia: Plan: -Continue atorvastatin 40 mg QD. (5) KATE (obstructive sleep apnea): Plan: -CPAP at night. (6) Ingrown toenail of right foot with infection: Plan: -Patient had a partial nail avulsion of the right great toe due to ingrown toenail on 08/[address] Francheska Chase with podiatry. Today the toe is erythematous with minor purulent discharge. -Augmentin p.o. twice daily for 7 days. (7) DVT prophylaxis: Plan: -SCDs ordered Admission and Anticipated Discharge Date Admission Date: August 10, 2021 Subjective this pt was seen post catheterization and was found to have non occlusive disease, but some distal disease and will have start of isosorbide to see if it provides symptom relief. Review of Systems Review of Systems: Mild distress and fatigue no headache, no visual changes no speech or swallowing issues no chest pain, pressure or palpitations no shortness of breath, cough or wheezes no abdominal pain, nausea or vomiting, diarrhea or constipation no dysuria, hematuria or frequency no focal joint pain or swelling no back pain, CVA tenderness or radicular pain no bruising, bleeding or rashes no focal signs of weakness or numbness or altered sensation no complaints of anxiety or depression.. Physical Exam Physical Exam: The patient appeared well nourished and normally developed. Vital signs as documented. Head exam is normocephalic atraumatic Neck is without JVD, thyromegaly, or carotid bruits. Lungs are clear to auscultation, no focal loss of breath sounds Cardiac exam, Rhythm is regular.. No murmurs, rubs or gallops. Abdominal exam reveals normal bowel sounds, soft non tender, no masses Extremities are nonedematous and both pedal pulses are present Neurologic exam is alert and oriented, no focal loss of strength or sensation Skin is without bruises or rashes Psychologically is without concerns for anxiety or depression.. Results & Data Results & Data ([facility]) Vital Signs (Past 12 Hours) Vital Signs Temp Pulse Pulse Resp BP BP Pulse Ox 08/11/21 16:30 62 18 112/71 96 08/11/21 16:15 72 18 151/81 H 96 08/11/21 16:00 72 18 152/75 H 96 08/11/21 15:45 62 18 157/74 H 97 08/11/21 15:30 67 18 133/75 97 08/11/21 15:15 66 18 148/88 H 97 08/11/21 15:00 67 18 190/96 H 93 08/11/21 14:45 74 18 162/91 H 91 08/11/21 14:30 73 18 142/78 H 91 08/11/21 14:15 60 18 145/69 H 91 08/11/21 14:00 60 18 145/69 H 91 08/11/21 12:55 73 98 08/11/21 12:17 65 18 103/55 L 96 08/11/21 11:18 97.3 F L 71 18 144/76 H 97 08/11/21 08:50 54 L 08/11/21 07:57 97.7 F 85 18 150/86 H 98 PG Care Time/CCT Total # of Minutes Spent Total Time Spent with Patient: Total time spent is greater than 50% in coordination of care (as documented) at patient's floor/unit and/or counseling patient: Coding Level of Care Code 51895 Subseq Hosp Care Lvl 2 Diagnoses Chest pain R07.9 Ischemic chest pain type: unstable angina pectoris Hypertension I10 Hypertension type: primary hypertension Hypothyroidism E89.0 Hypothyroidism type: postoperative Hyperlipidemia E78.5 Hyperlipidemia type: unspecified KATE (obstructive sleep apnea) G47.33 Ingrown toenail of right foot with infection L60.0 DVT prophylaxis Z29.9 (1) Chest pain Ischemic chest pain type: unstable angina pectoris (2) Hypertension Hypertension type: primary hypertension Qualified Code(s): I10 - Essential (primary) hypertension (3) Hypothyroidism Hypothyroidism type: postoperative Qualified Code(s): E89.0 - Postprocedural hypothyroidism (4) Hyperlipidemia Hyperlipidemia type: unspecified Qualified Code(s): E78.5 - Hyperlipidemia, unspecified
[2021-08-11] MEDS: ISOSORBIDE MONO EXTENDED REL 30 MG TABCR PO SCH (19:38)
[2021-08-11 20:03] LABS: Partial Thromboplastin Time 25.5 Seconds (21.0-31.0)
[2021-08-12 05:47] LABS: Partial Thromboplastin Time 25.9 Seconds (21.0-31.0)
[2021-08-12 05:48] LABS: Basophils # (auto) 0.04 K/uL (0-0.2); Basophils % (auto) 0.5 %; Eosinophils # (auto) 0.16 K/uL (0-0.5); Eosinophils % (auto) 2.1 %; Hemoglobin 12.8 g/dL (14.0-18.0); Immature Granulocytes # (auto) 0.01 K/uL (0.00-0.02); Immature Granulocytes % (auto) 0.1 %; Lymphocytes # (auto) 1.31 K/uL (1.2-3.4); Lymphocytes % (auto) 17.5 %; Mean Corpuscular Hemoglobin 25.7 pg (25-34); Mean Corpuscular Hgb Conc 32.8 g/dL (32-36); Mean Corpuscular Volume 78.3 fL (80-100); Mean Platelet Volume 10.9 fL (7.4-10.4); Monocytes # (auto) 0.65 K/uL (0.11-0.59); Monocytes % (auto) 8.7 %; Neutrophils # (auto) 5.31 K/uL (1.4-6.5); Neutrophils % (auto) 71.1 %; Platelet Count 186 K/uL (130-400); RDW Coefficient of Variation 14.6 % (11.5-14.5); RDW Standard Deviation 41.1 fL (36.4-46.3); Red Blood Count 4.98 M/uL (4.7-6.1); White Blood Count 7.48 K/uL (4.8-10.8)
[2021-08-12] MEDS: LEVOTHYROXINE SODIUM 150 MCG TABLET PO SCH (06:22)
--- NOTE | 2021-08-12 06:59 | Discharge Summary ---
Date of Service August 12, 2021 Admission HPI Per Admitting Provider Patient is 66-year-old male with past medical history of hypertension, hyperlipidemia, coronary artery disease with RCA stent placement in 2018, hypothyroidism and sleep apnea who presents today with chest pain for the past day. Patient states he was doing his routine treadmill exercise yesterday and could not exercise to the capacity he typically does because of generalized fatigue. He typically exercises for 45 min and can get up to speed 7 and maintain it for 4-5 min, however yesterday could only walk at a slower pace. He denies experiencing chest pain at this time. Today, he began to experience a squeezing chest pain in the center of his chest at rest that radiates to the back, associated with numbness and tingling down his left arm. He states this is a similar presentation as in 2018 when he had ch est pain that led to drug eluting stent placement. He took 3 nitroglycerin at home, and notes becoming lightheaded with this but did not have adequate pain alleviation which prompted his to call EMS. He endorses generalized fatigue, nausea, and some mild, generalized abdominal pain over the past 2 days, but denies vomiting, shortness of breath, PND, palpitations, weakness, edema, cough, congestion, headache, or other URI symptoms. Denies a history of GERD or recent injury to the chest wall. Pain is not positional or reproducible with palpation. Blood pressure is slightly elevated at 153/85, otherwise vitals are within normal limits. Initial troponin in ED was less than 0.03. EKG showed a sinus rhythm, when compared to an outpatient EKG from Apr 2021, there is evidence of LVH and questionable ST depression in the lateral leads. He was given aspirin on his way to the ED, as well as sublingual nitroglycerin and morphine in the ED. He says the morphine has brought his pain down to a 2-3 out of 10, however before it was 4-5 out of 10. Hospitalist team was called for evaluation and medical management. Principal Diagnosis cad with angina abdominal pain Discharge Data Allergies Allergy/AdvReac Type Severity Reaction Status Date / Time bee venom protein (honey bee) Allergy Unknown Verified 08/10/21 16:01 Consultations 08/10/21 16:15 ED Decision to Admit Stat 08/10/21 21:07 Consult Cardiology Routine Procedures Performed Operation Date: 08/11/21 13:30 Actual Procedures s Cineradiography w/Routine Exam - Rashid Roque MD p Cath, Left with Cors and Vent - Rashid Roque MD Ordered Studies 08/11/21 11:23 CL Cath Imgs for PACS use only Routine 08/12/21 07:00 US gallbladder Routine Hospital Course (1) Chest pain: -s/p CSI atherectomy and placement of 2 ERICKA to RCA in 2018 -negative trend of troponin -left heart cath Moderate nonobstructive coronary artery disease -Patent proximal to mid RCA stent, late-mid RCA stent with 30 to 40% restenosis. 45% mid PDA. 60 to 70% stenosis with myocardial bridging of very distal LAD as wraps around apex Low intracardiac filling pressure Recommendations by cardiology : Patient with no high risk CAD. Borderline very distal LAD disease not the cause of patient's recent rest pain. Continue medical managementwe will try Imdur 30 mg daily for recent exertional symptoms. Continue antiplatelet therapy with aspirin alone. Continue statin and prior antihypertensives. CAD with angina from distal atherosclerosis -Continue amlodipine, metoprolol, statin, ASA. (2) Hypertension: -Continue amlodipine and metoprolol QD. (3) Hypothyroidism: -Continue Synthroid 150 mcg QD. (4) Hyperlipidemia: -Continue atorvastatin 40 mg QD. (5) KATE (obstructive sleep apnea): -CPAP at night. (6) Ingrown toenail of right foot with infection: -Patient had a partial nail avulsion of the right great toe due to ingrown toenail on 08/[address] Francheska Chase with podiatry. Today the toe is erythematous with minor purulent discharge. -Augmentin p.o. twice daily for 7 days. (7) DVT prophylaxis: -SCDs ordered Total Time Total Time Spent Total Time Spent (In Minutes): It required greater than 30 minutes to prepare this patient for discharge Discharge Plan Discharge Items Patient Disposition: Home - Self-Care Reason For Visit: CHEST PAIN Discharge Diagnosis: angina, heart cath, treated by medications normal gall bladder ultrasound hepatic steatosis infeciton around toenail Activity: Per Instructions section Activity Comment: no intentional exercise until you see Dr Roque in follow up Non-emergency contact: Primary Care Provider and Support Architect Call non-emergency contact if: your symptoms worsen Follow-up/Referrals: Rashid Roque MD [Physician] - Hussein Feng DO [Primary Care Provider] - Diet: Heart Healthy Add Attending Provider Instructions: Complete antibiotics for toenail, if not improving 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 * No lifting over 2 pounds (approximately a 1/2 gallon of milk) with the utilized arm for 24 hours. * No strenuous activity such as bowling or tennis for 3 days. * Keep the site of the procedure covered with a bandage for 24 hours. *You may shower the day after the procedure. Do not take a tub bath or submerge the puncture site in water for the next 3 days. *Do not operate any motorized equipment for 3 days. SPECIAL CARE INSTRUCTIONS: The site may be slightly bruised and sore following your procedure. Should any of the following occur, contact the Dr. who performed your procedure. 1. Redness/inflammation, swelling, chills, or fever, or colored drainage at procedure site within 3-7 days after your procedure. 2. Coldness, discoloration, ongoing numbness, severe pain, or swelling. Expect mild tingling of hand and tenderness at the puncture site for up to three days. If this persists beyond three days, or other symptoms develop, notify the Dr. who performed your procedure. BLEEDING: If the procedure site on your wrist begins to bleed, do not panic 1. Place 1 or 2 fingers firmly just slightly above the insertion site to stop the bleeding. You may be able to feel your pulse as you hold pressure. 2. Lift your finger after 5 minutes to see if the bleeding has stopped. 3. Once the bleeding has stopped, gently wipe the wrist area clean with a bandage. * If the bleeding from your wrist does not stop after 10 minutes, or if there is a large amount of bleeding or spurting, call 911 (do not drive yourself to the hospital). SKIN IRRITATION: * You may experience some redness and/or swelling in the area where radiation was administered. If any skin irritation occurs, please contact your family physician. FOLLOW UP VISIT: Keep any scheduled doctor appointments. Pending Studies at Discharge: No Stand-Alone Forms: My [employer], Smoking Cessation Medications and DC Order Prescriptions: New isosorbide mononitrate 30 mg Tablet Extended Release 24 Hr 30 mg PO QAM Qty: 30 RF: 0 amoxicillin-pot clavulanate 500-125 mg Tablet 1 tab PO BID Qty: 10 RF: 0 Continued aspirin [Adult Low Dose Aspirin] 81 mg tablet,delayed release (DR/EC) 81 mg PO QAM RF: 0 amlodipine 10 mg tablet 10 mg PO QPM Qty: 90 RF: 3 atorvastatin 40 mg tablet 40 mg PO QPM Qty: 90 RF: 3 tamsulosin [Flomax] 0.4 mg capsule 0.4 mg PO HS Qty: 90 RF: 3 nitroglycerin 0.4 mg tablet, sublingual 0.4 mg sublingual Q5M PRN (Reason: chest pain) Qty: 30 RF: 3 (DME) CPAP Supplies Misc See Rx Instructions .Route Qty: 1 RF: 0 levothyroxine [Synthroid] 150 mcg tablet 150 mcg PO DAILYBB RF: 0 metoprolol succinate 25 mg tablet extended release 24 hr 12.5 mg PO QAM RF: 0 Discharge Orders: Discharge Order (Routine); Ordered 08/12/21 Ordered By: Pedro Luis Mcmanus/Other Patient Handouts: Nonalcoholic Fatty Liver ... Admission Data Admit Date/Time: 08/10/21 18:29 Attending Provider: Pedro Luis Finney Admit Provider: Pedro Luis Finney Primary Care Provider: Hussein Feng Other Providers: Pedro Luis Finney ; Barry Hines ; Nico Anthony ; Javier Castro ; Toribio Kimbrough ; Graeme Chang Jr ; Gurdeep Stringer ; Debby Valdes ; Shirley Bravo ; Rashid Roque ; Mushtaq Perez ; Teddy Jovel ; Josiane Dowell ; Emma Angulo ; Savage Justin ; Khris De Leon ; Nikko Roberts Other Interventions: Discharge Summary Assessment (RN) Last Done: 08/12/21 14:24 Coding Level of Care Code D/C DAY MANAGEMENT >30 MINS Diagnoses Chest pain R07.9 Ischemic chest pain type: unstable angina pectoris Hypertension I10 Hypertension type: primary hypertension Hypothyroidism E89.0 Hypothyroidism type: postoperative Hyperlipidemia E78.5 Hyperlipidemia type: unspecified KATE (obstructive sleep apnea) G47.33 Ingrown toenail of right foot with infection L60.0 DVT prophylaxis Z29.9
[2021-08-12] MEDS: METOPROLOL SUCC 25MG EXT REL TAB PO SCH (07:32)
[2021-08-12] MEDS: AMOXICILLIN/CLAVULANATE 500 MG TAB PO SCH (07:32)
[2021-08-12] MEDS: ISOSORBIDE MONO EXTENDED REL 30 MG TABCR PO SCH (07:32)
[2021-08-12] MEDS ORDERED: ASPIRIN 81 MG ECTAB PO SCH (09:00)
--- NOTE | 2021-08-12 09:08 | Ultrasound Report ---
US gallbladder CLINICAL HISTORY: eval for cholelithiasis as atypical cp TECHNIQUE: Multiple real-time sonographic images of the right upper quadrant were obtained. Comparison: None available at the time of this dictation. FINDINGS: The liver is diffusely echogenic in appearance with poor ultrasound penetration, with normal contour, which is consistent with fatty infiltration. No focal mass lesions are seen. No intrahepatic hector roselyn dilatation is seen. No gallstones or sludge are identified within the gallbladder. The gallbladd er wall is not thickened. There is no pericholecystic fluid present. A sonographic Gray's sign was not elicited by the email operations manager. The common duct measures 0.4 cm in diameter at the level of the h epatic artery. The visualized portions of the pancreas appear normal. The right kidney shows normal echogenicity, cortical thickness and renal contour. The right kidney sh ows no evidence of hydronephrosis or mass. No ascites or free fluid is seen in Rose's pouch. IMPRESSION: 1. No acute abnormalities are seen. No cholelithiasis or cholecystitis. 2. Hepatic steatosis. ACT 112: Negative or not required by law. Electronically signed by: Wilberto Villanueva M.D. 08/12/2021 9:06 AM
--- NOTE | 2021-08-12 09:25 | Cardiology Progress Note ---
Date of Service August 12, 2021 Assessment & Plan (1) CAD (coronary artery disease): Plan: Patent RCA stents. Apical LAD disease 2. Preserved LV function 3. Hypertension 4. Dyslipidemia Chest pain noncardiac. Hemodynamically and electrically stable No access site complications. From a cardiac standpoint okay with discharge today Home on aspirin, current statin Trial of Imdur for exertional symptoms. If no improvement will discontinue at next visit Continue home amlodipine, Toprol Follow-up with me in 1 month. Admission and Anticipated Discharge Date Admission Date: August 10, 2021 Subjective Feeling okay this morning. Slept somewhat better overnight. Still with some mild residual chest discomfort. Telemetry reviewedno events. Right upper quadrant ultrasoundunremarkable Review of Systems Review of Systems: All systems reviewed & are unremarkable except as noted in HPI & below Physical Exam Physical Exam: General: Comfortable HEENT: Sclerae anicteric, Mask in place Lungs: Clear anteriorly Cardiac: Regular rate and rhythm Vascular: Right/left radial artery access site with no ecchymosis, hematoma. Distal pulse and sensation intact. Abdomen: Soft, nontender Extremities: Well perfused, no peripheral edema Neuro: Nonfocal Psych: Alert orient x3, normal affect and mood Results & Data ([facility]) Vital Signs (Past 12 Hours) Vital Signs Temp Pulse Pulse Resp BP BP Pulse Ox 08/12/21 07:19 97.2 F L 72 16 111/64 98 08/12/21 01:00 58 L 08/11/21 23:46 61 12 102/61 96 08/11/21 23:00 59 L 16 08/11/21 22:16 72 20 PG Care Time/CCT Total # of Minutes Spent Total Time Spent with Patient: Total time spent is greater than 50% in coordination of care (as documented) at patient's floor/unit and/or counseling patient: Coding Level of Care Code 41323 Subseq Hosp Care Lvl 2 Diagnoses CAD (coronary artery disease) I25.10
== END 2021-08-12 14:35 | disposition home or self-care (01) | DRG 287 ==
LOC: ED 14:39 → EDINP 18:29 → 2N 22:45 → 1E 08-11 19:25